=== PATIENT | female | born 1985 | race Two or more races ===

== ENCOUNTER 2016-09-17 07:59 | Day surgery (SDC) | payer OTHER ==
[~2016-09-17 07:59] MED LIST: FENTANYL 250 MCG/5 ML AMP IV PRN; LACTATED RINGERS 1,000 ML IV SCH; LIDOCAINE Viscous 2% 15 ML UDCUP PO PRN; MIDAZOLAM HCL 5 MG/5 ML VIAL IV PRN
[2016-09-17] MEDS ORDERED: IV START KIT ONE (08:02)
[2016-09-17] MEDS ORDERED: LACTATED RINGERS 1,000 ML ONE (08:02)
[2016-09-17] MEDS ORDERED: LIDOCAINE Viscous 2% 15 ML UDCUP ONE (09:07)
[2016-09-17] MEDS ORDERED: MIDAZOLAM HCL 5 MG/5 ML VIAL ONE (09:11)
[2016-09-17] MEDS ORDERED: FENTANYL 250 MCG/5 ML AMP ONE (09:12)
[2016-09-17 13:55] LABS: HELICOBACTER PYLORII DETECTION NEGATIVE (NEGATIVE)
--- NOTE | 2016-09-22 09:57 | SURGPATH ---
[facility] [address] [place] [id number] Patient Name: DENZEL BROOKS MR#: [id number] : 1985 Gender: F Specimen #: [id number] Collected: 09/17/2016 Received: 09/18/2016 Reported: 09/22/2016 Submitting Phys: LYNDA MG Copy To Phys: [facility]IL[facility] ALISHA SLATER Clinical History / Pre-Operative Diagnosis: Epigastric pain; nausea; weight loss; rule out gastritis, Giardia and celiac sprue Specimen Source / Surgical Procedure Performed: #1-antral; #2-duodenal Interpretation: 1. GASTRIC ANTRUM, BIOPSY: - NO PATHOLOGIC ABNORMALITIES 2. DUODENUM, BIOPSY: - NO PATHOLOGIC ABNORMALITIES Electronically Signed Out Babak Lockwood M.D. Gross Description: #1 The specimen is received in a formalin filled container labeled with the patient's name and "antral biopsy". Two howard biopsies are 0.2 and 0.3 cm. Totally embedded in cassette #1. #2 The specimen is received in a formalin filled container labeled with the patient's name and "duodenal biopsy". Two pereyra biopsies are 0.2 and 0.5 cm. Totally embedded in cassette #2. Geoffrey Hall Microscopic Description: 1. The sections show fragments of gastric mucosa exhibiting a normal architectural pattern. There are no inflammatory or neoplastic features and there are no Helicobacter-like organisms identified. 2. The sections show fragments of small bowel mucosa exhibiting a normal architectural pattern without evidence of villous blunting. There are no inflammatory or neoplastic features and there are no microorganisms identified. 1: 26482 2: 05246 R10.13
== END 2016-09-17 10:15 | disposition home or self-care (01) ==
LOC: SDC 07:59
PROVIDERS: ATTEND Internal Medicine Gastroenterology
PROC: 0DB98ZX Excision of Duodenum, Via Natural or Artificial Opening Endoscopic, Diagnostic (ICD-10-PCS; principal; 2016-09-17)
PROC: 0DB68ZX Excision of Stomach, Via Natural or Artificial Opening Endoscopic, Diagnostic (ICD-10-PCS; 2016-09-17)
DX: K29.70 Gastritis, unspecified, without bleeding (principal); K29.80 Duodenitis without bleeding
CPT/HCPCS: 87081; 43239; J3010; J2250; A9270; J7120